=== PATIENT | male | born 1990 | race Caucasian/White ===

== ENCOUNTER 2016-09-17 00:20 | Emergency (ER) | payer OTHER ==
[~2016-09-17] VITALS: Ht 195.6 cm; Wt 52.2 kg
[2016-09-17] MEDS ORDERED: TRAMADOL 50 MG50 MG PO (03:25)
[2016-09-17] MEDS ORDERED: AUGMENTIN 875-1 EACH PO (03:25)
[2016-09-17 03:54] VITALS: BP 121/72
== END 2016-09-17 03:55 | disposition home or self-care (01) ==
LOC: ER 00:20
DX: S61.452A Open bite of left hand, initial encounter (principal); S61.257A Open bite of left little finger without damage to nail, initial encounter; R29.0 Tetany; F45.8 Other somatoform disorders; W54.0XXA Bitten by dog, initial encounter; Y93.89 Activity, other specified; Y92.89 Other specified places as the place of occurrence of the external cause; Y99.8 Other external cause status